=== PATIENT | female | born 1985 | race Caucasian/White ===

== ENCOUNTER 2016-05-17 07:25 | Emergency (ER) | payer OTHER ==
[~2016-05-17] VITALS: Ht 167.6 cm; Wt 136.1 kg
[~2016-05-17 07:25] MED LIST: ALD250 PO; ASPIR 8181 MG PO; AUGMENTIN1 TA2 PO; CENTRUM1 TA2 PO; CLEOCIN HCL150 MG PO; COLACE100 MG PO; D-20001 TAB PO; ENALAPRIL MALEA20 MG PO; ENALAPRIL20 M1 PO; FERG PO; FERROUS SULFAT325 M2 PO; FOLIC ACID1 MG PO; FUROSEMIDE20 MG PO; HUMI PO; HUMI SQ; HYDROCHLOROTHIA25 MG PO; LAC PO; LANTUS SOLOS100 U/M1 SC; LANTUS SOLOS100 U/M1 SQ; LEVAQUIN750 MG PO; LYRICA100 M1 PO; METHYLDOPA250 MG PO; METHYLDOPA500 MG PO; MULTI VITAMINS1 TA1; MULTI VITAMINS1 TA1 PO; NATURAL IRON65 MG PO; NATURE'S BLEND F1 MG PO; NOR10T PO; NORCO1 TA2 PO; ROC1I IM; SIMVASTATIN20 M1 PO; VINATE M1 TAB PO; VITAMIN C500 M4 PO; VITAMIN D32000 I2; VITC PO; ZINC50 M3 PO
[2016-05-17 09:39] LABS: PLATELET COUNT 403 x10^3mcL (130-400); RED CELL DISTRIBUTION WIDTH 16.8 % (11.5-14.5)
[2016-05-17 10:01] LABS: BAND NEUTROPHIL 2 % (0-10); MONOCYTE 2 % (0-7); PLATELET MORPHOLOGY N; SEGMENTED NEUTROPHILS 64 % (37-75); rbc morphology (normal/abnorm) NORMAL (NORMAL)
[2016-05-17 10:14] LABS: CALCIUM 8.4 mg/dL (8.5-10.1); CARBON DIOXIDE 23.5 mmol/L (21-32); CHLORIDE SERUM 104 mmol/L (98-107); CREATININE SERUM 1.1 mg/dL (0.6-1.0); GFR1 > 60 mL/min; GLUCOSE SERUM 117 mg/dL (74-106); POTASSIUM SERUM 3.9 mmol/L (3.5-5.1); SODIUM SERUM 137 mmol/L (136-145)
[2016-05-17 10:19] LABS: ALKALINE PHOSPHATASE 173 U/L (46-116); ALT/SGPT 40 U/L (14-59); AST/SGOT 31 U/L (15-37); BILIRUBIN TOTAL 1.07 mg/dL (0.20-1.00); TOTAL PROTEIN, SERUM 6.8 g/dL (6.4-8.2)
[2016-05-17 10:20] LABS: ALBUMIN 1.8 g/dL (3.4-5.0)
[2016-05-17 11:18] VITALS: BP 155/90
== END 2016-05-17 11:18 | disposition short-term general hospital (02) ==
LOC: ED 07:25
PROVIDERS: Emergency Medicine
DX: O26.892 Other specified pregnancy related conditions, second trimester (principal); I10 Essential (primary) hypertension; L08.89 Other specified local infections of the skin and subcutaneous tissue; T81.4XXA Infection following a procedure, initial encounter; E11.69 Type 2 diabetes mellitus with other specified complication; D64.9 Anemia, unspecified; M86.171 Other acute osteomyelitis, right ankle and foot; Z3A.19 19 weeks gestation of pregnancy
CPT/HCPCS: J2405; J3010

== ENCOUNTER 2017-06-21 21:13 | Emergency (ER) | payer OTHER ==
[~2017-06-21] VITALS: Ht 167.6 cm; Wt 147.4 kg
[2017-06-21 21:39] VITALS: BP 123/63; Ht 167.6 cm; Wt 147.4 kg
== END 2017-06-22 01:53 | disposition left against medical advice (07) ==
LOC: ED 21:13
DX: Z53.21 Procedure and treatment not carried out due to patient leaving prior to being seen by health care provider (principal)

== ENCOUNTER 2017-06-22 17:35 | Emergency (ER) | payer OTHER ==
[~2017-06-22] VITALS: Ht 167.6 cm; Wt 147.4 kg
[2017-06-22 17:42] VITALS: Ht 167.6 cm; Wt 147.4 kg
[2017-06-22 18:17] LABS: BASOPHIL % 0.3 % (0-2); PLATELET COUNT 250 x10^3mcL (130-400); RED CELL DISTRIBUTION WIDTH 14.2 % (11.5-14.5)
[2017-06-22 18:20] LABS: CALCIUM 8.2 mg/dL (8.5-10.1); CARBON DIOXIDE 21.6 mmol/L (21-32); CREATININE SERUM 1.7 mg/dL (0.6-1.0); POTASSIUM SERUM 4.7 mmol/L (3.5-5.1)
[2017-06-22 18:30] LABS: ALBUMIN 2.5 g/dL (3.4-5.0); BILIRUBIN TOTAL 0.5 mg/dL (0.20-1.00); TOTAL PROTEIN, SERUM 6.7 g/dL (6.4-8.2)
[2017-06-22 19:04] LABS: CK-MB < 0.5 ng/mL (0-3.6); CREATINE KINASE 36 U/L (26-192)
[2017-06-22 19:23] LABS: UA SPECIFIC GRAVITY 1.025 (1.005-1.035); microscopic required? YES; urine erythrocyte 3+ (NEGATIVE)
[2017-06-22 22:39] VITALS: BP 104/76
== END 2017-06-22 22:39 | disposition home or self-care (01) ==
LOC: ED 17:35
PROVIDERS: Emergency Medicine
DX: B34.9 Viral infection, unspecified (principal); G44.209 Tension-type headache, unspecified, not intractable
CPT/HCPCS: 83880; 87804; J0696; J1885; Q0092

== ENCOUNTER 2018-08-22 18:21 | Emergency (ER) | payer OTHER ==
[~2018-08-22] VITALS: Ht 167.6 cm; Wt 168.3 kg
[2018-08-22 18:31] VITALS: Ht 167.6 cm; Wt 168.3 kg
[2018-08-22 19:22] LABS: BASOPHIL % 0.5 % (0-2); PLATELET COUNT 271 x10^3mcL (130-400)
[2018-08-22 19:27] LABS: RED CELL DISTRIBUTION WIDTH 14.8 % (11.5-14.5)
[2018-08-22 19:29] LABS: CALCIUM 8.1 mg/dL (8.5-10.1); CARBON DIOXIDE 23.6 mmol/L (21-32); CREATININE SERUM 1.8 mg/dL (0.6-1.0); POTASSIUM SERUM 4.4 mmol/L (3.5-5.1)
[2018-08-22 19:35] LABS: ALBUMIN 2.5 g/dL (3.4-5.0); BILIRUBIN TOTAL 0.5 mg/dL (0.20-1.00); C REACTIVE PROTEIN 16.7 mg/dL (<=0.9); TOTAL PROTEIN, SERUM 6.7 g/dL (6.4-8.2)
[2018-08-22] MEDS ORDERED: LISINOPRIL2.5 MG PO (19:53)
[2018-08-22] MEDS ORDERED: PRO30 PO (19:53)
[2018-08-22] MEDS ORDERED: LANTUS SOLOS100 U/M1 (19:53)
[2018-08-22] MEDS ORDERED: EPZICOM1 TAB (19:54)
[2018-08-22] MEDS ORDERED: LIPI10 (19:54)
[2018-08-22 20:00] LABS: ERYTHROCYTE SED RATE 111 mm/hr (0-20)
[2018-08-22 21:16] LABS: CHOLESTEROL/HDL RATIO 3.8; PHOSPHOROUS 4.1 mg/dL (2.5-4.9)
[2018-08-22 22:06] VITALS: BP 130/75
== END 2018-08-22 22:06 | disposition left against medical advice (07) ==
LOC: ED 18:21
PROVIDERS: Emergency Medicine; Internal Medicine
DX: L03.116 Cellulitis of left lower limb (principal); E10.9 Type 1 diabetes mellitus without complications; I10 Essential (primary) hypertension; Z88.8 Allergy status to other drugs, medicaments and biological substances; Z98.890 Other specified postprocedural states
CPT/HCPCS: 83880; J2270; J2543; J3370; Q0092

== ENCOUNTER 2018-08-24 16:26 | Emergency (ER) | payer OTHER ==
[~2018-08-24] VITALS: Ht 167.6 cm; Wt 166.9 kg
[~2018-08-24 16:26] MED LIST changes: +EPZICOM1 TAB; +LANTUS SOLOS100 U/M1; +LIPI10; +LISINOPRIL2.5 MG PO; +PRO30 PO
[2018-08-24 16:39] VITALS: Ht 167.6 cm; Wt 166.9 kg
[2018-08-24 18:44] VITALS: BP 117/53
== END 2018-08-24 18:44 | disposition home or self-care (01) ==
LOC: ED 16:26
DX: L03.116 Cellulitis of left lower limb (principal); E11.9 Type 2 diabetes mellitus without complications; I10 Essential (primary) hypertension; H54.7 Unspecified visual loss; Z89.611 Acquired absence of right leg above knee; Z88.8 Allergy status to other drugs, medicaments and biological substances
CPT/HCPCS: 82962; J0295; J1885

== ENCOUNTER 2019-10-04 21:26 | Inpatient (IN) | payer OTHER ==
[~2019-10-04] VITALS: Ht 167.6 cm; Wt 179.3 kg
[2019-10-04 21:33] VITALS: Ht 167.6 cm; Wt 179.3 kg
--- NOTE | 2019-10-04 22:08 | NUR ---
PATIENT BIBA FROM HOME, C/O LEFT LEG PAIN/REDNESS/SWELLING X4 DAYS. PATIENT STATES THIS HAS BEEN GOING ON FOR 2 WEEKS ON AND OFF. NOTED LEFT LEG REDNESS/SWELLING AND HOT TO TOUCH, +PMSC. NOTED SMALL DIME SIZE WOUND POSTERIOR OF LEFT ANKLE, NO DISCHARGE NOTED AT THIS TIME. PATIENT HAS RIGHT BELOW THE KNEE AMPUTATION, PER PATIENT SINCE APRIL 2016, PATIENT WEARING LEG PROSTHETIC, NOTED LEFT 5TH TOE AMPUTATION, PER PATIENT CAN'T REMEMBER EXACT YEAR, PATIENT STATES SOMETIME BEFORE 2016. PATIENT AAOX4, NO ACUTE DISTRESS NOTED AT THIS TIME. SAFETY PRECAUTIONS IN PLACE, MSE DONE BY DR. ELKINS, CALL LIGHT WITHIN REACH, WILL CONTINUE TO MONITOR. HX: DM (TYPE 1), HTN, LEFT EYE BLINDNESS, RIGHT BELOW THE KNEE AND LEFT 5TH TOE AMPUTATION, CELLULITIS, HYPERLIPEDEMIA.
--- NOTE | 2019-10-04 22:21 | NUR ---
LAB AT BEDSIDE
[2019-10-04 22:31] LABS: BASOPHIL % 0.3 % (0-2); PLATELET COUNT 254 x10^3mcL (130-400)
[2019-10-04 22:32] LABS: RED CELL DISTRIBUTION WIDTH 15.4 % (11.5-14.5)
[2019-10-04 22:46] LABS: CALCIUM 8.2 mg/dL (8.5-10.1); CARBON DIOXIDE 21.6 mmol/L (21-32); CREATININE SERUM 2.4 mg/dL (0.6-1.0); POTASSIUM SERUM 4.2 mmol/L (3.5-5.1)
--- NOTE | 2019-10-04 22:54 | NUR ---
PATIENT SITING IN BED AWAKE, NO DISTRESS NOTED AT THIS TIME, CALL LIGHT WITHIN REACH, WILL CONTINUE TO MONITOR.
[2019-10-04 23:02] LABS: BILIRUBIN TOTAL 0.4 mg/dL (0.20-1.00); TOTAL PROTEIN, SERUM 6.7 g/dL (6.4-8.2)
[2019-10-04 23:07] LABS: ALBUMIN 2.4 g/dL (3.4-5.0)
--- NOTE | 2019-10-04 23:09 | NUR ---
ULTRASOUND AT BEDSIDE.
[2019-10-04 23:39] LABS: C REACTIVE PROTEIN 25.9 mg/dL (<=0.9)
--- NOTE | 2019-10-05 00:07 | NUR ---
PATIENT STATES 9/10 PAIN AT THIS TIME. NORCO PO MEDICATION ADMINISTERED AT THIS TIME, WILL CONTINUE TO MONITOR.
[2019-10-05] MEDS ORDERED: FISH OIL 1,0001 EACH PO (00:09)
[2019-10-05] MEDS ORDERED: VITAMIN C100 M2 PO (00:10)
[2019-10-05] MEDS ORDERED: ADMELOG SO100 UNIT/1 SQ ×2 (00:14→00:16)
[2019-10-05] MEDS ORDERED: BASAGLAR K100 UNIT/1 SQ (00:17)
--- NOTE | 2019-10-05 00:17 | NUR ---
PATIENT HAS CELL PHONE AND PURSE IN HER POSSESSION.
--- NOTE | 2019-10-05 01:40 | NUR ---
PATIENT AMBULTED TO RESTROOM AND BACK TO BED T2A WITH A STEADY GAIT, NO DISTRESS NOTED, CALL LIGHT WITHIN REACH, WILL CONTINUE TO MONITOR.
--- NOTE | 2019-10-05 01:49 | NUR ---
REPORT GIVEN TO ALICIA MILLER, TO ASSUME PATIENT CARER IN TELE FLOOR, RM [id number] ALL QUESTIONS ADDRESSED.
[2019-10-05 02:48] LABS: microscopic required? YES; urine erythrocyte 3+ (NEGATIVE)
--- NOTE | 2019-10-05 02:56 | NUR ---
PATIENT ARRIVED TO THE UNIT VIA GURNEY ACCOMPANY BY RN. PATENT IS AAOX4, DENIES LANCE/DIZZINESS. BREATHING EVEN AND UNLABORED ON RA WITH 100% O2SAT. NO RESP DISTRESS. TELE 35 SR ON MONITOR, DENIES CHEST PAIN/PRESSURE. IV LAC PATENT, FLUSHED WELL. PATIENT LLE EDEMA +2, ERYTHEMA WARM TO TOUCH WITH A SCAB ON THE LEFT HEEL, NO DRAINAGE NOTED. PATIENT ALSO HAS RBKA WITH PROSTHETIC IN PLACE. PALPABLE PULSES. PATIENT IS OBESE. ABD SOFT, ACTIVE BOWEL SOUNDS. PATIENT STATES SHE IS BLIND TO LEFT EYE. PATIENT HAS GLUCOSE MONTIOR IMPLANT TO LEFT UPPER ARM. PATIENT REQUESTING TO BE COVERED WITH INSULIN HER BLOOD SUGAR IS 220 ON THE PEEWEE, CHECKED BS= 211. DR AGUILAR AT BEDSIDE AND OKAY TO COVER WITH RISS AT THIS TIME. PATIENT REPORTED PAIN TO LLE, MEDICATED PER EMAR. PATIENT AMBULATORY. CC LLE SWELLING AND REDDNESS ON AND OFF FOR A FEW MONTHS, RECENTLY TAKING ABX LAST WEEK BUT NOT IMPROVING.
[2019-10-05 03:01] VITALS: BP 127/67
[2019-10-05 03:02] LABS: AMPHETAMINE QUAL UR NONE DETECTED (See below)
[2019-10-05 04:18] LABS: CHOLESTEROL/HDL RATIO 3.6
[2019-10-05 04:50] VITALS: BP 123/62
--- NOTE | 2019-10-05 06:21 | NUR ---
PATIENT SLEPT MOST OF THE NIGHT WITH NO ACUTE DISTRESS NOTED. UNLABORED BREATHING ON RA. PATIENT DENIES PAIN. ALL NEEDS MET. SAFETY PRECAUTIONS IN PLACE. IV PATENT, INFUSING WELL WITH NO SIGNS OF INFILTRATION NOTED. WILL MONITOR.
--- NOTE | 2019-10-05 07:25 | NUR ---
RECEIVED PT IN BED AWAKE, ALERT, ABLE TO VERBALIZE NEEDS. ON TELE 35. IV SITE TO LEFT AC WITH NS AT 100CC/HR. DENIES PAIN OR DISCOMFORT AT THIS TIME. ON RA, DENIES SOB, NO ACUTE RESPIRATORY DISTRESS. NO QUESTIONS OR CONCERNS AT THIS TIME. BED IN LOWEST POSITION. CALL LIGHT WITHIN REACH. WILL CONTINUE TO MONITOR.
[2019-10-05 07:38] LABS: CALCIUM 8.1 mg/dL (8.5-10.1); CARBON DIOXIDE 19.8 mmol/L (21-32); CREATININE SERUM 2.5 mg/dL (0.6-1.0); MAGNESIUM 2.1 mg/dL (1.8-2.4); PHOSPHOROUS 4.4 mg/dL (2.5-4.9); POTASSIUM SERUM 4.2 mmol/L (3.5-5.1)
--- NOTE | 2019-10-05 07:38 | NUR ---
PATIENT IN NO SIGNS OF DISTRESS. ENDORSED CARE TO CHEONDOISM RN, ALL QUESTIONS ADDRESSED.
[2019-10-05 07:53] LABS: BASOPHIL % 0.6 % (0-2); PLATELET COUNT 258 x10^3mcL (130-400); RED CELL DISTRIBUTION WIDTH 15.4 % (11.5-14.5)
[2019-10-05 09:41] VITALS: BP 122/53
[2019-10-05 14:14] VITALS: BP 106/60
[2019-10-05 18:31] VITALS: BP 121/63
--- NOTE | 2019-10-05 19:10 | NUR ---
ENDORSE CARE TO INCOMING NURSE. PT IN BED AWAKE, ALERT, ABLE TO VERBALIZE NEEDS. IV SITE TO LEFT AC RUNNING WITH NS AT 100CC/HR. DENIES PAIN OR DISCOMFORT AT THIS TIME, LAYING IN BED COMFORTABLY. ON RA, IN NO ACUTE RESPIRATORY DISTRESS. BED IN LOWEST POSITION. CALL LIGHT WITHIN REACH. ENDORSE ADDITIONAL CARE TO INCOMING RN.
[2019-10-05 21:27] VITALS: BP 146/76
[2019-10-06 04:32] VITALS: BP 138/69
--- NOTE | 2019-10-06 06:13 | NUR ---
PT HAD A RESTING NIGHT NO CH AGE AT THIS TIME,WILL CONTINUE TO MONITOR.
[2019-10-06 09:04] VITALS: BP 147/79
[2019-10-06 17:24] VITALS: BP 156/65
--- NOTE | 2019-10-06 18:31 | NUR ---
Pt alert and oriented times 4. Pt condition unchanged this shift. Pt with No out of control symptoms this shift. Both Lunch and Dinner BS requires 3 units of insulin per slidding scale. All meds given as ordered. Bed in low position and call light within reach. Pt is knowledgeable to call nurse for assistance. Will continue to monitor and endorse care to oncoming shift RN.
--- NOTE | 2019-10-06 19:50 | NUR ---
RECEIVED REPORT FROM DAY SHIFT RN. PT RESTING IN BED. AA&O X4. BREATHING EVEN AND UNLABORED ON ROOM AIR. NO C/O CHEST PAIN. NO DISTRESS NOTED. BLIND TO LEFT EYE. EDEMA AND ERYTHEMA TO LLE NOTED. RIGHT BKA WITH PROSTHESIS. IV TO LAC, INTACT. SAFETY MEASURES IN PLACE. INSTRUCTED PT TO CALL FOR ASSISTANCE. CALL LIGHT WITHIN REACH.
[2019-10-06 21:23] VITALS: BP 161/96
--- NOTE | 2019-10-07 03:23 | NUR ---
PT STATING PAIN IN LLE, MEDICATED WITH NORCO ORDERED, WILL CONTINUE TO MONITOR AND REASSESS
[2019-10-07 04:42] VITALS: BP 133/80
[2019-10-07 07:01] LABS: BASOPHIL % 0.7 % (0-2); PLATELET COUNT 307 x10^3mcL (130-400)
[2019-10-07 07:06] LABS: CALCIUM 7.8 mg/dL (8.5-10.1); CARBON DIOXIDE 23.7 mmol/L (21-32); CREATININE SERUM 2.7 mg/dL (0.6-1.0); MAGNESIUM 2.1 mg/dL (1.8-2.4); PHOSPHOROUS 4.6 mg/dL (2.5-4.9); POTASSIUM SERUM 4.6 mmol/L (3.5-5.1)
--- NOTE | 2019-10-07 07:15 | NUR ---
RECEIVED PT FROM LABORER PETROLEUM REFINERY NURSE. PT IN BED SLEEPING, AROUSABLE, RESP E/U ON RA. NO ACUTE DISTRESS NOTED. ON TELE 35 SHOWING SR, HR: 78. IV TO LFA W/ NO SIGNS OF INFILTRATION, RUNNING TKO AT THIS TIME. R BKA NOTED, PROSTHETIC AT BEDSIDE. BED IN LOWEST POSITION AND CALL LIGHT WITHIN REACH. WILL CONTINUE TO MONITOR.
--- NOTE | 2019-10-07 07:25 | NUR ---
PT RESTING WITH EYES CLOSED AT THSI TIME. BREATHING EVEN AND UNLABORED ON ROOM AIR. NO FACIAL GRIMACING. NO DISTRESS NOTED. IV TO LFA, PATENT AND INTACT. SAFETY MEASURES IN PLACE. BED IN LOWEST POSITIONED. CALL LIGHT WITHIN REACH. ENDORSED CARE TO DAY SHIFT RN.
[2019-10-07 08:02] VITALS: BP 134/70
[2019-10-07 11:55] VITALS: BP 165/72
--- NOTE | 2019-10-07 12:08 | NUR ---
PT RESTING IN BED, AXO4, RESP E/U ON RA. LLE WRAPPED W/ FARZAD WRAP ORDERED. NO DISCHARGE NOTED TO SITE, PT DENIES PAIN. BED IN LOWEST POSITION AND CALL LIGHT WITHIN REACH. WILL CONTINUE TO MONITOR.
--- NOTE | 2019-10-07 13:30 | NUR ---
PT LEFT AMA AT THIS TIME. PT WAS SEEN AT 1245, SCHEDULED MEDS AND PLAN OF CARE WAS EXPLAINED. PT APPEARED UPSET, STATED SHE DID WANT TO STAY IN THE HOSPITAL ANY LONGER AND THAT SHE WOULD JUST SET UP A FOLLOW UP APPOINTMENT W/ HER PRIMARY DOCTOR. DR. SEGUNDO WAS INFORMED, STATED THE PT MAY GO W/O A BEDSIDE VISIT FROM HER. AMA FORM WAS SIGNED BY PT AT THIS TIME. PT AOX4, RESP E/U ON RA, VS STABLE, DENIES PAIN AT THIS TIME. IV TO LAC REMOVED, CATH INTACT, GAUZE APPLIED TO SITE. TELE 35 REMOVED AND RETURNED TO TEST SKEIN WINDER. DRESSING TO PT LLE CDI. PT ESCORTED TO LOBBY VIA WHEELCHAIR BY ELECTRIC OPERATOR W/ NO ACUTE INCIDENCE.
== END 2019-10-07 13:41 | disposition left against medical advice (07) | DRG 720 ==
LOC: ED 21:26 → DU 23:56
PROVIDERS: Student in an Organized Health Care Education/Training Program; ADMIT Family Medicine; ATTEND Family Medicine
DX: A41.9 Sepsis, unspecified organism (principal); N17.0 Acute kidney failure with tubular necrosis; E11.65 Type 2 diabetes mellitus with hyperglycemia; E66.01 Morbid (severe) obesity due to excess calories; E11.9 Type 2 diabetes mellitus without complications; D64.9 Anemia, unspecified; N17.9 Acute kidney failure, unspecified; L03.116 Cellulitis of left lower limb; Z53.29 Procedure and treatment not carried out because of patient's decision for other reasons; E78.5 Hyperlipidemia, unspecified; I10 Essential (primary) hypertension; Z79.899 Other long term (current) drug therapy; Z89.431 Acquired absence of right foot; Z79.4 Long term (current) use of insulin; Z88.8 Allergy status to other drugs, medicaments and biological substances; Z82.49 Family history of ischemic heart disease and other diseases of the circulatory system; Z68.43 Body mass index [BMI] 50.0-59.9, adult
CPT/HCPCS: 82962; G0378; J1815; J1956; J2543; J3370; J3490; J7030; J7040; J7050; J7060; Q0092